=== PATIENT | female | born 2000 | race Caucasian/White ===

== ENCOUNTER 2019-08-27 12:53 | Emergency (ER) | payer OTHER ==
[2019-08-27 13:06] VITALS: BP 114/76
[2019-08-27] MEDS ORDERED: NORMAL SALINE 1000 ML 1,000 ML IV ONE (14:04)
--- NOTE | 2019-08-27 14:09 | ER Document Report ---
ED Medical Screen (RME) - General Chief Complaint: Nausea/Vomiting Stated Complaint: NAUSEA/VOMITING Time Seen by Provider: 08/27/19 13:56 - HPI Notes: 08/27/19 14:07 19-year old female para 2 1 who is 20 weeks presented to the emergency room for nausea and vomiting for the last 48 hours. Patient states she is not able to keep any food or drink down in 2 days. patient contacted [facility] and was advised to come to the emergency room for further evaluation. Patient is not tried any [id number] medications. Denies any fevers or chills. Denies any diarrhea. Denies any chest pain shortness of breath, we akness dizziness. I have greeted and performed a rapid initial assessment of this patient. A comprehensive ED assessment and evaluation of the patient, analysis of test results and completion of the medical decision making process will be conducted by additional ED providers. PHYSICAL EXAMINATION: GENERAL: Well-appearing, well-nourished and in no acute distress CV: s1, s2 regular LUNGS: No respiratory distress Musculoskeletal: Normal range of motion NEUROLOGICAL: Normal speech, normal gait. SKIN: Warm, Dry, normal turgor, no rashes or lesions noted. - Related Data Allergies/Adverse Reactions: No Known Allergies Allergy (Unverified 08/27/19 13:55) Past Medical History - Social History Chew tobacco use (# tins/day): No Drug Abuse: None Physical Exam - Vital signs Vitals: Temp Pulse Resp BP Pulse Ox 98.6 F 63 18 114/76 98 08/27/19 13:05 08/27/19 13:05 08/27/19 13:05 08/27/19 13:05 08/27/19 13:05 Course - Vital Signs Vital signs: Temp Pulse Resp BP Pulse Ox 98.6 F 63 18 114/76 98 08/27/19 13:55 08/27/19 13:55 08/27/19 13:55 08/27/19 13:55 08/27/19 13:55
[2019-08-27 15:03] LABS: ABSOLUTE LYMPHOCYTES (AUTO) 1.8 10^3/uL (0.5-4.7); ABSOLUTE MONOCYTES (AUTO) 0.8 10^3/uL (0.1-1.4); ABSOLUTE NEUT (AUTO) 10.4 10^3/uL (1.7-8.2); BASOPHILS % (AUTO) 0.2 % (0-2); EOSINOPHILS % (AUTO) 0.3 % (0-6); HEMATOCRIT 42.2 % (36.0-47.0); HEMOGLOBIN 14.5 g/dL (12.0-15.5); LYMPHOCYTES % (AUTO) 13.9 % (13-45); MEAN CORPUSCULAR HEMOGLOBIN 31.4 pg (27.0-33.4); MEAN CORPUSCULAR HGB CONC 34.3 g/dL (32.0-36.0); MEAN CORPUSCULAR VOLUME 91 fl (80-97); MONOCYTES % (AUTO) 5.8 % (3-13); PLATELET COUNT 192 10^3/uL (150-450); RED BLOOD COUNT 4.62 10^6/uL (3.72-5.28); SEGMENTED NEUTROPHILS % (AUTO) 79.8 % (42-78); TOTAL CELLS COUNTED % (AUTO) 100 %; WHITE BLOOD COUNT 13.1 10^3/uL (4.0-10.5)
[2019-08-27 15:18] LABS: ALBUMIN 4.6 g/dL (3.5-5.0); ALKALINE PHOSPHATASE 56 U/L (38-126); ANION GAP 11 (5-19); ASPARTATE AMINO TRANSFERASE 18 U/L (14-36); BILIRUBIN,DIRECT 0.1 mg/dL (0.0-0.4); BILIRUBIN,TOTAL 0.5 mg/dL (0.2-1.3); BLOOD UREA NITROGEN 10 mg/dL (7-20); CARBON DIOXIDE 25 mmol/L (22-30); CHLORIDE 104 mmol/L (98-107); GLUCOSE 82 mg/dL (75-110); POTASSIUM 4.3 mmol/L (3.6-5.0); TOTAL PROTEIN 8.2 g/dL (6.3-8.2)
[2019-08-27 15:19] LABS: APPEARANCE,URINE CLOUDY; BILIRUBIN,URINE NEGATIVE (NEGATIVE); COLOR,URINE AMBER; GLUCOSE, URINE NEGATIVE (NEGATIVE); KETONES,URINE 20 mg/dL (NEGATIVE); LEUKOCYTE ESTERASE,URINE SMALL (NEGATIVE); NITRITE,URINE NEGATIVE (NEGATIVE); PROTEIN,URINE 30 mg/dL (NEGATIVE); URINE SPECIFIC GRAVITY 1.028; UROBILINOGEN,URINE NEGATIVE mg/dL (<2.0)
[2019-08-27] MEDS ORDERED: METOCLOPRAMIDE HCL INJ/PF 10 MG/2 ML SDV IV ONE (15:45)
--- NOTE | 2019-08-27 15:50 | ER Document Report ---
ED GI/ - General Mode of Arrival: Ambulatory Information source: Patient, Relative TRAVEL OUTSIDE OF THE [place] IN LAST 30 DAYS: No <KRYSTAL SCHMIDT - Last Filed: 08/27/19 16:59> <JUWAN SHANNON - Last Filed: 08/27/19 18:57> - General Chief Complaint: Nausea/Vomiting Stated Complaint: NAUSEA/VOMITING Time Seen by Provider: 08/27/19 13:56 Notes: 19-year-old female patient is G2, P1 currently almost 20 weeks . She reports she has had nausea vomiting for 4 weeks, but has been unable to keep anything down for the past 4 days. There is been no diarrhea. No fevers. No abdominal pain. She sees [facility] for her care. Patient has not been on any medications for this. She states she did not know what might be safe to take. She has been trying to use these seasickness/emesis bands that consist of a elastic band with small nodes that press against the volar wrists. (KRYSTAL SCHMIDT) - Related Data Allergies/Adverse Reactions: No Known Allergies Allergy (Unverified 08/27/19 13:55) Past Medical History - General Information source: Patient, Relative - Social History Smoking Status: Never Smoker Cigarette use (# per day): No Chew tobacco use (# tins/day): No Smoking Education Provided: No Frequency of alcohol use: None Drug Abuse: None Lives with: Family, Spouse/Significant other Family History: Reviewed & Not Pertinent Patient has suicidal ideation: No Patient has homicidal ideation: No - Medical History Medical History: Negative Surgical Hx: Negative <KRYSTAL SCHMIDT - Last Filed: 08/27/19 16:59> Review of Systems - Review of Systems Constitutional: No symptoms reported EENT: No symptoms reported Cardiovascular: No symptoms reported Respiratory: No symptoms reported Gastrointestinal: See HPI Genitourinary: No symptoms reported Female Genitourinary: - 20 weeks Musculoskeletal: No symptoms reported Skin: No symptoms reported Hematologic/Lymphatic: No symptoms reported Neurological/Psychological: No symptoms reported <KRYSTAL SCHMIDT - Last Filed: 08/27/19 16:59> Physical Exam - General General appearance: Appears well, Alert In distress: None - HEENT Head: Normocephalic, Atraumatic Eyes: Normal Pupils: PERRL Nasal: Normal Mouth/Lips: Normal Mucous membranes: Dry - Mouth is a little dry. Pharynx: Normal Neck: Normal - Respiratory Respiratory status: No respiratory distress Breath sounds: Normal - Cardiovascular Rhythm: Regular Heart sounds: Normal auscultation Murmur: No - Abdominal Inspection: Gravid female Bowel sounds: Normal Tenderness: Tender - Back Back: Normal - Extremities General upper extremity: Normal inspection General lower extremity: Normal inspection - Neurological Neuro grossly intact: Yes - Psychological Associated symptoms: Normal affect, Normal mood - Skin Skin Temperature: Warm Skin Moisture: Dry Skin Color: Normal <KRYSTAL SCHMIDT - Last Filed: 08/27/19 16:59> - Vital signs Vitals: Temp Pulse Resp BP Pulse Ox 98.6 F 63 18 114/76 98 08/27/19 13:05 08/27/19 13:05 08/27/19 13:05 08/27/19 13:05 08/27/19 13:05 Course - Laboratory Result Diagrams: 08/27/19 14:39 08/27/19 14:39 - Transfer of Care Care transferred to following provider: Dr. Shannon <KRYSTAL SCHMIDT - Last Filed: 08/27/19 16:59> - Laboratory Result Diagrams: 08/27/19 14:39 08/27/19 14:39 <JUWAN SHANNON - Last Filed: 08/27/19 18:57> - Vital Signs Vital signs: Temp Pulse Resp BP Pulse Ox 98.6 F 63 18 114/76 98 08/27/19 13:55 08/27/19 13:55 08/27/19 13:55 08/27/19 13:55 08/27/19 13:55 - Laboratory Laboratory results interpreted by me: 08/27/19 08/27/19 08/27/19 14:39 14:39 14:39 WBC 13.1 H Absolute Neuts (auto) 10.4 H Seg Neutrophils % 79.8 H Beta HCG, Quant 720329.00 H Urine Protein 30 H Urine Ketones 20 H Ur Leukocyte Esterase SMALL H Urine Ascorbic Acid 40 H - Transfer of Care Notes: 08/27/19 16:56 Patient with hyperemesis gravidarum, currently receiving IV fluids. (KRYSTAL SCHMIDT) Discharge <KRYSTAL SCHMIDT - Last Filed: 08/27/19 16:59> <JUWAN SHANNON - Last Filed: 08/27/19 18:57> - Discharge Clinical Impression: Hyperemesis gravidarum Condition: Stable Disposition: HOME, SELF-CARE Additional Instructions: Patient is to follow-up with her OB drug and alcohol treatment specialist in the a.m. Hyperemesis Gravidarum Hyperemesis gravidarum is the medical term for severe vomiting during . We don't know exactly why it occurs, but it's a common problem. Dehydration can occur. This reduces blood flow to the placenta, decreasing the baby's nourishment. The baby will also become dehydrated. There can be harmful changes in blood sodium, potassium, or acid balance. Our goal is to correct, and prevent, dehydration. For severe cases, we give IV fluids. Antinausea medication will be prescribed. (Don't be concerned about " defects" -- the risk to you and your baby from the hyperemesis is the biggest problem. The antinausea medication is very safe at this stage of .) Call the doctor if you have vaginal bleeding, abdominal pain, severe lightheadedness or weakness, or other alarming symptoms. Take the medications for nausea as prescribed if needed. Drink small sips of cool clear liquids throughout the day and evening. Follow-up with your [facility] doctors if not improving. RETURN TO THE EMERGENCY ROOM IF ANY NEW OR WORSENING SYMPTOMS. Prescriptions: Metoclopramide HCl [Reglan 10 mg Tablet] 10 mg PO ASDIR PRN #20 tablet PRN Reason:
[2019-08-27] MEDS ORDERED: DEXTROSE 5%-LACTATED RINGERS 1,000 ML IV ONE (16:00)
== END 2019-08-27 19:12 | disposition home or self-care (01) ==
LOC: ER 12:53
DX: O21.0 Mild hyperemesis gravidarum (principal); Z3A.20 20 weeks gestation of pregnancy
CPT/HCPCS: 99284; 96361; 96374; 36415; 84702; 83690; 85025; 80053; 81001; J2765; J7121; J7030